=== PATIENT | female | born 1995 | race Hispanic/Latino ===

== ENCOUNTER 2018-03-30 07:27 | Emergency (ER) | payer OTHER, SELFPAY ==
[2018-03-30 08:05] LABS: #Lymphocytes 1.4 thou/uL (1.20-3.40); #Monocytes 0.3 thou/uL (0.11-0.59); #Neutrophils 5.1 thou/uL (1.40-6.50); %Basophils 0.4 % (0.0-1.0); %Eosinophils 0.7 % (0.0-10.0); %Lymphocytes 20.9 % (21.0-51.0); %Monocytes 4.2 % (0.0-10.0); %Neutrophils 73.9 % (42.0-75.0); Hemoglobin 14.6 g/dL (12.0-16.0); Mean Corpuscular HGB CONC 34.9 g/dL (32.0-36.0); Mean Corpuscular Hemoglobin 30.3 pg (27.0-31.0); Mean Corpuscular Volume 86.8 fl (81.0-99.0); Mean Platelet Volume 6.6 fL (7.4-10.4); Platelet Count 383 thou/uL (130-400); RBC Distribution Width 11.4 % (11.5-14.5); Red Blood Cell (RBC) Count 4.81 mill/uL (4.20-5.40); White Blood Cell (WBC) Count 6.9 thou/uL (4.8-10.8)
[2018-03-30] MEDS ORDERED: Ondansetron ODT 4 MG TAB ONE ×2 (08:09→09:27)
[2018-03-30 08:30] LABS: ALT (SGPT) 16 U/L (8-55); AST (SGOT) 19 U/L (5-34); Albumin 4.6 g/dL (3.5-5.0); Alkaline Phosphatase 93 U/L (40-150); Anion Gap 14 mmol/L (10-20); BUN (Urea Nitrogen) 5 mg/dL (7.0-18.7); Bilirubin, Total 0.3 mg/dL (0.2-1.2); Calc. Creatinine Clearance 0 mL/min (70-130); Carbon Dioxide 22 mmol/L (22-29); Chloride 107 mmol/L (98-107); Estimated GFR-MDRD Greater than 90; Globulin 3.6 g/dL (2.4-3.5); Glucose 125 mg/dL (70-105); Potassium 3.5 mmol/L (3.5-5.1); Protein, Total 8.2 g/dL (6.0-8.3); Sodium 139 mmol/L (136-145)
[2018-03-30 09:13] LABS: Bilirubin Negative (Negative); Blood, Urine Negative (Negative); Clarity CLEAR (Clear); Glucose, Urine (Dipstick) Negative (Negative); Leukocyte Negative (Negative); Nitrite Negative (Negative); Protein, Urine (Dipstick) Negative (Neg-Trace); Specific Gravity, Urine 1.012 (1.002-1.036); Urobilinogen 0.2 mg/dL (0.2-1.0)
== END 2018-03-30 10:57 | disposition home or self-care (01) ==
LOC: ERS 07:27
DX: E86.0 Dehydration (principal)
CPT/HCPCS: 36415; 80053; 81003; 85025; 96360; Q0162

== ENCOUNTER 2020-12-02 22:12 | Emergency (ER) | payer SELFPAY ==
[2020-12-02] MEDS ORDERED: Ondansetron PF 4 MG/2 ML Vial ONE (22:50)
[2020-12-02 23:05] LABS: #Lymphocytes 1.5 thou/uL (1.20-3.40); #Monocytes 0.3 thou/uL (0.11-0.59); #Neutrophils 7.9 thou/uL (1.40-6.50); %Basophils 0.2 % (0.0-1.0); %Eosinophils 0.1 % (0.0-10.0); %Monocytes 2.6 % (0.0-10.0); %Neutrophils 82.2 % (42.0-75.0); Hemoglobin 13.6 g/dL (12.0-16.0); Mean Corpuscular HGB CONC 34.9 g/dL (32.0-36.0); Mean Corpuscular Hemoglobin 29.7 pg (27.0-31.0); Mean Corpuscular Volume 85.1 fL (78.0-98.0); Mean Platelet Volume 6.8 fL (7.4-10.4); Platelet Count 408 thou/uL (130-400); RBC Distribution Width 11.5 % (11.5-14.5); Red Blood Cell (RBC) Count 4.58 mill/uL (4.20-5.40); White Blood Cell (WBC) Count 9.6 thou/uL (4.8-10.8)
[2020-12-02 23:23] LABS: ALT (SGPT) 23 U/L (8-55); AST (SGOT) 22 U/L (5-34); Albumin 4.3 g/dL (3.5-5.0); Alkaline Phosphatase 75 U/L (40-110); Anion Gap 15 mmol/L (10-20); BUN (Urea Nitrogen) 5 mg/dL (7.0-18.7); Bilirubin, Total 0.3 mg/dL (0.2-1.2); Calc. Creatinine Clearance 0 mL/min (70-130); Calcium 9.7 mg/dL (7.8-10.44); Carbon Dioxide 22 mmol/L (22-29); Chloride 105 mmol/L (98-107); Globulin 3.9 g/dL (2.4-3.5); Glucose 94 mg/dL (70-105); Potassium 3.7 mmol/L (3.5-5.1); Protein, Total 8.2 g/dL (6.0-8.3); Sodium 138 mmol/L (136-145)
== END 2020-12-03 00:54 | disposition home or self-care (01) ==
LOC: ERS 22:12
DX: O21.0 Mild hyperemesis gravidarum (principal); Z3A.09 9 weeks gestation of pregnancy
CPT/HCPCS: 80053; 85025; 96374; J2405

== ENCOUNTER 2020-12-13 13:29 | Emergency (ER) | payer MEDICAID, SELFPAY ==
[2020-12-13 14:14] LABS: Bacteria/HPF 2+ HPF (None Seen); Bilirubin Negative (Negative); Blood, Urine 3+ (Negative); Clarity Turbid (Clear); Glucose, Urine (Dipstick) Normal (Negative); Ketone, Urine 150 mg/dL (Negative); Leukocyte 250 Leu/uL (Negative); Nitrite Negative (Negative); Protein, Urine (Dipstick) 70 mg/dL (Neg-Trace); RBC/HPF 21-50 HPF (0-3); Specific Gravity, Urine 1.028 (1.002-1.036); Squamous Epithelial 21-50 HPF (0-3); WBC/HPF 21-50 HPF (0-3)
[2020-12-13] MEDS ORDERED: Acetaminophen 500 MG TAB ONE (14:52)
[2020-12-17 21:58] LABS: Chlamydia by PCR Not Detected (NotDetected); GC by PCR Not Detected (NotDetected)
== END 2020-12-13 16:20 | disposition home or self-care (01) ==
LOC: ERS 13:29
DX: O23.591 Infection of other part of genital tract in pregnancy, first trimester (principal); Z3A.10 10 weeks gestation of pregnancy; Z79.899 Other long term (current) drug therapy
CPT/HCPCS: 81003; 81015; 87480; 87491; 87510; 87591; 87660; 99283

== ENCOUNTER 2020-12-16 13:55 | Emergency (ER) | payer SELFPAY ==
[2020-12-16 14:59] LABS: Bacteria/HPF 3+ HPF (None Seen); Bilirubin Negative (Negative); Blood, Urine 2+ (Negative); Clarity Turbid (Clear); Glucose, Urine (Dipstick) Normal (Negative); Ketone, Urine Greater than 150 mg/dL (Negative); Leukocyte 250 Leu/uL (Negative); Nitrite Negative (Negative); Protein, Urine (Dipstick) 100 mg/dL (Neg-Trace); RBC/HPF 0-3 HPF (0-3); Squamous Epithelial 21-50 HPF (0-3); pH, Urine 5.5 (5.0-9.0)
[2020-12-16 15:00] LABS: Pregnancy Test - Urine (BHCG) POSITIVE (Negative); Pregu Control Background? CLEAR/WHITE (CLR/WHITE); Pregu Control Bar Appear? YES (CONTROL BAR)
[2020-12-16 15:29] LABS: #Lymphocytes 2.2 thou/uL (1.20-3.40); #Monocytes 0.5 thou/uL (0.11-0.59); #Neutrophils 7.3 thou/uL (1.40-6.50); %Basophils 0.4 % (0.0-1.0); %Eosinophils 0.1 % (0.0-10.0); %Lymphocytes 21.8 % (21.0-51.0); %Monocytes 5.2 % (0.0-10.0); %Neutrophils 72.4 % (42.0-75.0); Hemoglobin 13.4 g/dL (12.0-16.0); Mean Corpuscular HGB CONC 35.3 g/dL (32.0-36.0); Mean Corpuscular Volume 84.9 fL (78.0-98.0); Mean Platelet Volume 7.1 fL (7.4-10.4); Platelet Count 416 thou/uL (130-400); RBC Distribution Width 11.6 % (11.5-14.5); Red Blood Cell (RBC) Count 4.46 mill/uL (4.20-5.40); White Blood Cell (WBC) Count 10.1 thou/uL (4.8-10.8)
[2020-12-16 15:51] LABS: ALT (SGPT) 21 U/L (8-55); AST (SGOT) 22 U/L (5-34); Albumin 4.4 g/dL (3.5-5.0); Alkaline Phosphatase 71 U/L (40-110); Anion Gap 20 mmol/L (10-20); BUN (Urea Nitrogen) 8 mg/dL (7.0-18.7); Bilirubin, Total 0.3 mg/dL (0.2-1.2); Calc. Creatinine Clearance 0 mL/min (70-130); Calcium 9.7 mg/dL (7.8-10.44); Carbon Dioxide 16 mmol/L (22-29); Chloride 106 mmol/L (98-107); Glucose 79 mg/dL (70-105); Potassium 3.6 mmol/L (3.5-5.1); Protein, Total 8.4 g/dL (6.0-8.3); Sodium 138 mmol/L (136-145)
[2020-12-16] MEDS ORDERED: Ondansetron ODT 4 MG TAB ONE (19:05)
[2020-12-16] MEDS ORDERED: cefTRIAXone\\ROCEPHIN 2 GM VIAL ONE (20:47)
[2020-12-16] MEDS ORDERED: Metoclopramide HCl 10 MG/2 ML VIAL ONE (20:57)
== END 2020-12-16 22:46 | disposition home or self-care (01) ==
LOC: ERS 13:55
DX: O23.41 Unspecified infection of urinary tract in pregnancy, first trimester (principal); O99.891 Other specified diseases and conditions complicating pregnancy; R11.2 Nausea with vomiting, unspecified; Z3A.11 11 weeks gestation of pregnancy
CPT/HCPCS: 36415; 36416; 80053; 81003; 81015; 81025; 84702; 85025; 96365; 96368; J0696; J2765; Q0162

== ENCOUNTER 2020-12-17 23:23 | Observation (INO) | payer MEDICAID, SELFPAY ==
[2020-12-17] MEDS ORDERED: Ondansetron PF 4 MG/2 ML Vial ONE (23:53)
[2020-12-18 00:03] LABS: #Monocytes 0.5 thou/uL (0.11-0.59); %Basophils 0.2 % (0.0-1.0); %Eosinophils 0.1 % (0.0-10.0); %Lymphocytes 11.8 % (21.0-51.0); %Neutrophils 84.9 % (42.0-75.0); Hemoglobin 13.6 g/dL (12.0-16.0); Mean Corpuscular HGB CONC 34.7 g/dL (32.0-36.0); Mean Corpuscular Hemoglobin 29.6 pg (27.0-31.0); Mean Corpuscular Volume 85.5 fL (78.0-98.0); Mean Platelet Volume 7.2 fL (7.4-10.4); Platelet Count 450 thou/uL (130-400); RBC Distribution Width 11.7 % (11.5-14.5); Red Blood Cell (RBC) Count 4.59 mill/uL (4.20-5.40); White Blood Cell (WBC) Count 16.5 thou/uL (4.8-10.8)
[2020-12-18 00:42] LABS: ALT (SGPT) 19 U/L (8-55); AST (SGOT) 20 U/L (5-34); Albumin 4.5 g/dL (3.5-5.0); Alkaline Phosphatase 78 U/L (40-110); Anion Gap 23 mmol/L (10-20); BUN (Urea Nitrogen) 6 mg/dL (7.0-18.7); Bilirubin, Total 0.6 mg/dL (0.2-1.2); Calc. Creatinine Clearance 0 mL/min (70-130); Chloride 111 mmol/L (98-107); Globulin 4.2 g/dL (2.4-3.5); Glucose 94 mg/dL (70-105); Potassium 3.4 mmol/L (3.5-5.1); Protein, Total 8.7 g/dL (6.0-8.3); Sodium 140 mmol/L (136-145)
[2020-12-18] MEDS ORDERED: Promethazine HCl 25 MG/ML VIAL ONE (00:42)
[2020-12-18 00:46] LABS: Carbon Dioxide 9 mmol/L (22-29)
[2020-12-18] MEDS ORDERED: cefTRIAXone\\ROCEPHIN 1 GM VIAL ONE (00:56)
[2020-12-18 01:42] LABS: Bacteria/HPF None Seen HPF (None Seen); Bilirubin Negative (Negative); Blood, Urine 2+ (Negative); Clarity Clear (Clear); Glucose, Urine (Dipstick) Normal (Negative); Ketone, Urine Greater than 150 mg/dL (Negative); Leukocyte Negative Leu/uL (Negative); Nitrite Negative (Negative); Protein, Urine (Dipstick) 70 mg/dL (Neg-Trace); RBC/HPF 21-50 HPF (0-3); Specific Gravity, Urine 1.027 (1.002-1.036); Squamous Epithelial 0-3 HPF (0-3)
[2020-12-18] MEDS ORDERED: Famotidine/PF 20 mg/2ml Vial ONE (01:48)
[2020-12-18] MEDS ORDERED: Ondansetron ODT 4 MG TAB PO PRN (01:50)
[2020-12-18] MEDS ORDERED: Acetaminophen 325 MG TAB PO PRN (01:50)
[2020-12-18] MEDS ORDERED: Ondansetron PF 4 MG/2 ML Vial IVP PRN (01:50)
[2020-12-18] MEDS ORDERED: Promethazine HCl 25 MG/ML VIAL IM PRN (01:54)
[2020-12-18] MEDS: Sodium Chloride 0.9% 1,000 ML IV SCH ×4 (03:26→20:18)
[2020-12-18] MEDS ORDERED: Polyethylene Glycol 3350 17 GM Packet PO PRN (07:02)
[2020-12-18 08:38] LABS: SARS-CoV-2 PCR by NAA Not Detected (NotDetected)
[2020-12-18] MEDS: Famotidine 20 MG TAB PO SCH ×2 (08:45→20:12)
[2020-12-18] MEDS: pyridOXINE 50 MG (B6) TAB PO SCH ×3 (08:45→20:12)
[2020-12-18] MEDS ORDERED: pyridOXINE 50 MG (B6) TAB PO SCH (09:00)
[2020-12-18] MEDS ORDERED: FLU VACC QS2020-21(6MOS UP)/PF 60 MCG/0.5 ML SYRINGE IM ONE (21:00)
[2020-12-18] MEDS ORDERED: Doxylamine 25 MG TAB PO SCH ×2 (21:00)
[2020-12-19] MEDS: pyridOXINE 50 MG (B6) TAB PO SCH ×2 (00:58→07:45)
[2020-12-19] MEDS ORDERED: cefTRIAXone\\ROCEPHIN 1 GM in Sodium Chloride 0.9% 100 ML IVPB SCH (01:00)
[2020-12-19] MEDS: Sodium Chloride 0.9% 1,000 ML IV SCH (01:03)
[2020-12-19 05:41] LABS: Mean Corpuscular HGB CONC 33.6 g/dL (32.0-36.0); Mean Corpuscular Hemoglobin 29.1 pg (27.0-31.0); Mean Corpuscular Volume 86.5 fL (78.0-98.0); Platelet Count 345 thou/uL (130-400); Red Blood Cell (RBC) Count 3.78 mill/uL (4.20-5.40); White Blood Cell (WBC) Count 11.1 thou/uL (4.8-10.8)
[2020-12-19] MEDS: Famotidine 20 MG TAB PO SCH (07:45)
[2020-12-19 08:08] VITALS: BP 114/59; TEMP 98.4
== END 2020-12-19 12:43 | disposition home or self-care (01) ==
LOC: ERS 23:23 → 3SE 12-18 01:50
PROVIDERS: ADMIT Obstetrics & Gynecology; ATTEND Obstetrics & Gynecology
DX: O21.9 Vomiting of pregnancy, unspecified (principal); O99.611 Diseases of the digestive system complicating pregnancy, first trimester; K59.00 Constipation, unspecified; Z3A.11 11 weeks gestation of pregnancy; Z79.2 Long term (current) use of antibiotics; Z20.822 Contact with and (suspected) exposure to COVID-19
CPT/HCPCS: 36415; 51701; 76856; 80053; 81003; 81015; 85025; 85027; 87086; 87635; 96361; 96365; 96367; 96375; 96376; G0378; J0696; J2405; J2550; J3490; S0028; U0003; U0005

== ENCOUNTER 2020-12-21 14:44 | Emergency (ER) | payer MEDICAID, SELFPAY | END 2020-12-21 17:38 | disposition home or self-care (01) | LOC: ERS 14:44 | DX: O20.0 Threatened abortion (principal); Z79.899 Other long term (current) drug therapy; Z3A.12 12 weeks gestation of pregnancy | CPT/HCPCS: 36415; 84702; 86900; 86901; 99284 ==

== ENCOUNTER 2020-12-26 23:42 | Emergency (ER) | payer MEDICAID, SELFPAY ==
[2020-12-27 00:23] LABS: #Lymphocytes 1.9 thou/uL (1.20-3.40); #Monocytes 0.5 thou/uL (0.11-0.59); #Neutrophils 7.6 thou/uL (1.40-6.50); %Basophils 0.1 % (0.0-1.0); %Eosinophils 0.1 % (0.0-10.0); %Lymphocytes 19.1 % (21.0-51.0); %Monocytes 5.2 % (0.0-10.0); %Neutrophils 75.6 % (42.0-75.0); Hemoglobin 13.4 g/dL (12.0-16.0); Mean Corpuscular Hemoglobin 29.5 pg (27.0-31.0); Mean Platelet Volume 7.8 fL (7.4-10.4); Platelet Count 393 thou/uL (130-400); RBC Distribution Width 11.8 % (11.5-14.5); Red Blood Cell (RBC) Count 4.55 mill/uL (4.20-5.40); White Blood Cell (WBC) Count 10.1 thou/uL (4.8-10.8)
[2020-12-27 00:45] LABS: ALT (SGPT) 45 U/L (8-55); AST (SGOT) 35 U/L (5-34); Albumin 4.2 g/dL (3.5-5.0); Alkaline Phosphatase 84 U/L (40-110); Anion Gap 21 mmol/L (10-20); BUN (Urea Nitrogen) 9 mg/dL (7.0-18.7); Bilirubin, Total 0.5 mg/dL (0.2-1.2); Calc. Creatinine Clearance 0 mL/min (70-130); Calcium 9.7 mg/dL (7.8-10.44); Carbon Dioxide 20 mmol/L (22-29); Chloride 100 mmol/L (98-107); Glucose 105 mg/dL (70-105); Protein, Total 8.2 g/dL (6.0-8.3); Sodium 138 mmol/L (136-145)
[2020-12-27 00:48] LABS: Potassium 2.8 mmol/L (3.5-5.1)
[2020-12-27] MEDS ORDERED: Ondansetron ODT 4 MG TAB ONE (00:54)
[2020-12-27] MEDS ORDERED: Acetaminophen 500 MG TAB ONE ×2 (00:54→01:24)
[2020-12-27] MEDS ORDERED: Ondansetron PF 4 MG/2 ML Vial ONE (01:07)
[2020-12-27 01:08] LABS: Anion Gap 19 mmol/L (10-20); BUN (Urea Nitrogen) 9 mg/dL (7.0-18.7); Calc. Creatinine Clearance 0 mL/min (70-130); Calcium 9.6 mg/dL (7.8-10.44); Carbon Dioxide 22 mmol/L (22-29); Chloride 101 mmol/L (98-107); Glucose 98 mg/dL (70-105); Sodium 139 mmol/L (136-145)
[2020-12-27 01:13] LABS: Potassium 2.8 mmol/L (3.5-5.1)
[2020-12-27] MEDS ORDERED: Potassium Chloride 20 MEQ TAB ONE (01:24)
[2020-12-27] MEDS ORDERED: Promethazine HCl 25 MG SUPP ONE (01:38)
== END 2020-12-27 02:20 | disposition home or self-care (01) ==
LOC: ERS 23:42
DX: O21.0 Mild hyperemesis gravidarum (principal); Z3A.12 12 weeks gestation of pregnancy
CPT/HCPCS: 36415; 80048; 80053; 84702; 85025; 96374; J2405; Q0162

== ENCOUNTER 2020-12-29 03:20 | Observation (INO) | payer MEDICAID, SELFPAY ==
[2020-12-29] MEDS ORDERED: Promethazine HCl 25 MG/ML VIAL ONE ×3 (03:41→13:30)
[2020-12-29 03:59] LABS: #Lymphocytes 2.3 thou/uL (1.20-3.40); #Monocytes 0.8 thou/uL (0.11-0.59); #Neutrophils 11.2 thou/uL (1.40-6.50); %Basophils 0.1 % (0.0-1.0); %Lymphocytes 16.4 % (21.0-51.0); %Monocytes 5.6 % (0.0-10.0); Hemoglobin 14.1 g/dL (12.0-16.0); Mean Corpuscular HGB CONC 34.8 g/dL (32.0-36.0); Mean Corpuscular Hemoglobin 29.1 pg (27.0-31.0); Mean Corpuscular Volume 83.5 fL (78.0-98.0); Mean Platelet Volume 7.7 fL (7.4-10.4); Platelet Count 417 thou/uL (130-400); Red Blood Cell (RBC) Count 4.85 mill/uL (4.20-5.40); White Blood Cell (WBC) Count 14.3 thou/uL (4.8-10.8)
[2020-12-29 04:27] LABS: ALT (SGPT) 85 U/L (8-55); AST (SGOT) 58 U/L (5-34); Albumin 4.5 g/dL (3.5-5.0); Alkaline Phosphatase 96 U/L (40-110); Anion Gap 27 mmol/L (10-20); BUN (Urea Nitrogen) 14 mg/dL (7.0-18.7); Calc. Creatinine Clearance 0 mL/min (70-130); Calcium 10.2 mg/dL (7.8-10.44); Carbon Dioxide 14 mmol/L (22-29); Chloride 102 mmol/L (98-107); Globulin 4.3 g/dL (2.4-3.5); Glucose 126 mg/dL (70-105); Protein, Total 8.8 g/dL (6.0-8.3); Sodium 140 mmol/L (136-145)
[2020-12-29 04:30] LABS: Potassium 2.8 mmol/L (3.5-5.1)
[2020-12-29] MEDS ORDERED: Promethazine HCl 25 MG in Sodium Chloride 0.9% 50 ML IVPB PRN (06:46)
[2020-12-29] MEDS ORDERED: Morphine 4 MG/ML VIAL SLOW IVP PRN ×2 (06:48→14:17)
[2020-12-29] MEDS: Sodium Chloride 0.9% 1,000 ML IV SCH ×2 (06:57→13:52)
[2020-12-29] MEDS: Potassium Chloride 10 MEQ in Premix Bag 1 BAG IVPB SCH ×2 (06:58→06:59)
[2020-12-29] MEDS: Piperacillin/Tazobactam 4.5 GM in Sodium Chloride 0.9% 100 ML IVPB SCH ×2 (06:59→13:52)
[2020-12-29 09:09] LABS: Anion Gap 19 mmol/L (10-20); BUN (Urea Nitrogen) 11 mg/dL (7.0-18.7); Calc. Creatinine Clearance 141 mL/min (70-130); Calcium 8.6 mg/dL (7.8-10.44); Carbon Dioxide 17 mmol/L (22-29); Chloride 107 mmol/L (98-107); Glucose 93 mg/dL (70-105); Potassium 2.9 mmol/L (3.5-5.1); Sodium 140 mmol/L (136-145)
--- NOTE | 2020-12-29 09:33 | ULT ---
PRELIMINARY REPORT/[facility]/EMERGENCY AFTER HOURS PROCEDURE: EXAM: US Abdomen Limited, Right Upper Quadrant. CLINICAL HISTORY: HX: ABD PAIN, N/V, ELEVATED LFTS. SEE NOTES ON LAST IMAGE. THANKS TECHNIQUE: Real-time ultrasound of the right upper quadrant with image documentation. COMPARISON: None provided. FINDINGS: LIVER: Unremarkable. GALLBLADDER: The gallbladder is distended and filled with echogenic sludge, with mild wall thickening and a positi ve sonographic Gilliland's sign. Findings highly suggestive of acute cholecystitis. COMMON BILE DUCT: No dilation. PANCREAS: Unremarkable as visualized. The distal pancreas is obscured by overlying bowel gas. RIGHT KIDNEY: Unremarkable. No hydronephrosis. IMPRESSION: The gallbladder is distended and filled with echogenic sludge, with mild wall thickening and a positi ve sonographic Gilliland's sign. Findings highly suggestive of acute cholecystitis. ELECTRONICALLY SIGNED BY: Etta Lam MD Dec 29, 2020 4:55:27 AM ARTIFICIAL TEETH INSPECTOR This report is intended for review by the ordering physician only, in accordance of law. If you recei ve this report in error, please call [facility] at [phone]. FINAL REPORT EMERGENCY AFTER HOURS RIGHT UPPER QUADRANT ULTRASOUND: I agree with the preliminary report provided by [facility]. Findings are suspicious for acute c alculus cholecystitis. Gallbladder is distended with gallbladder sludge and small stones. There is re port of a positive sonographic Gilliland's sign. There is gallbladder wall thickening. Common bile duct measured 2.4 mm. Visualized liver, pancreas, and right kidney are within normal limits. POS:
--- NOTE | 2020-12-29 09:47 | PDOC.H&P ---
- History & Physical Encounter Time: 12/29/20 Encounter Time: 09:42 Chief complaint-my abdomen hurts History of present illness-the patient is a 25-year-old G1, P0 female who is 13 weeks . She presented to the emergency room several days ago with nausea and vomiting. She was given Phenergan. Over the last 3 to 4 days, she states that she has been developing epigastric pain. It seems to be nonradiating. Constant. She has had a decreased p.o. intake. At times, feels like the room is spinning. She has never had anything like this before. Pain can be 10 out of 10. Past medical history-none Past surgical history-none Allergies-none Medications-none Social history-no MALIKA Family history-diabetes hypertension Review of systems-negative for 10 system, two-point per system other than HPI Heart rate 80, afebrile, 123/72 General-appears ill, uncomfortable Head-[normocephalic, atraumatic] HEENT- [EOMI], [PERRLA] Neck-[trachea midline, supple] Lungs-[grossly clear to auscultation], [normal air movement] Heart-[regular regular], [no murmurs] Abdomen-[soft], [nondistended], tender to palpation in the right upper quadrant, [normal active bowel sounds] Musculosketal-[full range of motion], [no gross deformity] Psychiatric-[good insight, good judgment] Skin-[good turgor, no jaundice] Neuro- [GCS 15], [CN II-XII intact] White blood cell count 14, transaminases slightly elevated Right upper quadrant ultrasound-independently viewed the images, I read the radiologist interpretation-patient's gallbladder is basically filled with echogenic material. Gallbladder wall slightly thickened. Common bile duct is normal. Assessment- #1-acute cholecystitis-patient has a physical exam, radiology findings, and labs consistent with acute cholecystitis. We have discussed the risks and benefits of proceeding to the operating room for laparoscopic cholecystectomy. Risks include, but not limited to, bleeding, infection, damage to bowel, bile ducts, liver. We also had a discussion that her is in the previable stage. There is always a risk for miscarriage. Unfortunately there is not much that we can do if that were to happen. Her PHYTOCHEMISTRY PROFESSOR is in [place]. She is visiting her parents here. Patient voices understanding. #3-gicxuymkgug-kfouj replaced-more than likely secondary to vomiting #6-yigvtamq-gjf above Plan- N.p.o. Antibiotics Laparoscopic cholecystectomy Possible discharge home today, but the patient would have to rebound fairly quickly. More than likely, discharge home tomorrow
[2020-12-29] MEDS ORDERED: PROPOFOL 200 MG/20 ML VIAL ONE (10:50)
[2020-12-29] MEDS ORDERED: Lidocaine 1% PF 5 ML VIAL ONE (10:50)
[2020-12-29] MEDS ORDERED: Succinylcholine 200 MG/10 ml SYRINGE FS ONE (10:50)
[2020-12-29] MEDS ORDERED: Ondansetron PF 4 MG/2 ML Vial ONE (10:50)
[2020-12-29] MEDS ORDERED: Ketorolac Tromethamine 30 MG/ML VIAL ONE (10:50)
[2020-12-29] MEDS ORDERED: Dexamethasone 20 MG/5 ML VIAL ONE (10:50)
[2020-12-29] MEDS ORDERED: Glycopyrrolate 0.2 MG/ML 5 ML SYRINGE ONE (10:50)
[2020-12-29] MEDS ORDERED: Rocuronium Bromide 10 MG/ML (10ML VIAL) ONE (10:50)
[2020-12-29 11:17] LABS: SARS-CoV-2 NAA Rapid Test Not Detected (NotDetected)
[2020-12-29] MEDS ORDERED: Fentanyl 100 MCG/2 ML VIAL ONE (11:46)
[2020-12-29] MEDS ORDERED: XYLOCAINE 2%-EPI 1:100,000 20 ML VIAL ONE (12:37)
[2020-12-29] MEDS ORDERED: Bupivacaine PF 0.5% 30 ML VIAL ONE (12:37)
[2020-12-29] MEDS ORDERED: HYDROmorphone 0.5 MG/0.5 ML SYRINGE ONE (13:30)
[2020-12-29] MEDS ORDERED: HYDROcodone/Acetaminophen 10/325 mg Tablet PO PRN (14:17)
[2020-12-29] MEDS ORDERED: Calcium Carbonate 500 MG ChewTAB PO PRN (14:17)
[2020-12-29] MEDS ORDERED: Mag-Al 1200 mg/1200 mg/30 ML UDCUP PO PRN (14:17)
[2020-12-29] MEDS ORDERED: hydrALAZINE 20 MG/ML VIAL SLOW IVP PRN (14:17)
[2020-12-29] MEDS ORDERED: Dextrose 5% in Water 1,000 ML IV PRN (14:17)
[2020-12-29] MEDS ORDERED: Promethazine HCl 25 MG/ML VIAL IM PRN (14:17)
[2020-12-29] MEDS ORDERED: Ondansetron PF 4 MG/2 ML Vial IVP PRN (14:17)
[2020-12-29] MEDS ORDERED: Morphine 2 MG/ML VIAL SLOW IVP PRN (14:17)
[2020-12-29] MEDS ORDERED: Dextrose 50% Abboject 50 ML SYRINGE SLOW IVP PRN (14:17)
--- NOTE | 2020-12-29 14:21 | PDOC.OP ---
Operative Note - Operative Note Operative Note: Date of operation-29 December 2020 Preoperative diagnosis-acute cholecystitis Postoperative diagnosis-same Operation-[laparoscopic cholecystectomy] Specimen-[gallbladder] EBL-[minimal] Complications-[none] Sponge and needle count were correct x2 Indication for procedure-the patient is a 25-year-old female who presents for laparoscopic cholecystectomy secondary to gallstones and acute cholecystitis.. Conduct of the operation-after written preoperative informed consent, the patient was taken to the operating room, placed in the supine position and intubated. The abdomen was prepared and draped in sterile fashion. A timeout was performed. An incision was made in the right subcostal margin and a 5 mm trocar direct optical entry technique was used to enter the abdomen. Pneumoperitoneum was established. The underlying viscera was inspected and there was no damage noted. A 10 mm was placed at the umbilicus and 2 additional 5 mm were placed under the right costal margins at the usual locations under direct visualization. The fundus of the gallbladder was grasped and retracted over the dome of the liver. The gallbladder appeared fairly thin-walled. There was some chronic changes in the color, but given the patient's time course, I was expecting more of an inflammatory reaction.. The infundibulum was grasped and retracted laterally. Dissection was carried out in the triangle of Calot until the critical view of safety was obtained. Clips were placed across the cystic duct and it was divided with the harmonic. The artery was divided with the harmonic and the gallbladder was removed from the gallbladder bed fossa. Specimen was placed in an Endo Catch bag and removed via the umbilicus. The right upper quadrant was inspected and there was no bleeding or bile staining noted. The trocar was removed at the umbilicus and a 0 Vicryl suture on a suture passer was used to close the fascial defect. The incisions were irrigated and closed with Monocryl and surgical skin glue. The patient was extubated and taken the postanesthesia care area in good condition having tolerated the procedure well.
[2020-12-29] MEDS: Lactated Ringer's 1,000 ML IV SCH ×2 (15:06→23:02)
[2020-12-29] MEDS: Ketorolac Tromethamine 30 MG/ML VIAL IVP SCH ×2 (18:02→23:00)
[2020-12-29] MEDS: Famotidine/PF 20 mg/2ml Vial SLOW IVP SCH (20:18)
[2020-12-29] MEDS: Famotidine 20 MG TAB PO SCH (20:19)
[2020-12-30] MEDS: Ketorolac Tromethamine 30 MG/ML VIAL IVP SCH ×2 (05:43→11:31)
[2020-12-30 06:56] LABS: #Lymphocytes 2.3 thou/uL (1.20-3.40); #Monocytes 0.8 thou/uL (0.11-0.59); %Basophils 0.1 % (0.0-1.0); %Lymphocytes 17.3 % (21.0-51.0); %Monocytes 5.9 % (0.0-10.0); %Neutrophils 76.7 % (42.0-75.0); Hemoglobin 10.1 g/dL (12.0-16.0); Mean Corpuscular HGB CONC 34.9 g/dL (32.0-36.0); Mean Corpuscular Hemoglobin 29.7 pg (27.0-31.0); Mean Corpuscular Volume 85.2 fL (78.0-98.0); Platelet Count 290 thou/uL (130-400); RBC Distribution Width 12.3 % (11.5-14.5); Red Blood Cell (RBC) Count 3.42 mill/uL (4.20-5.40)
[2020-12-30 07:11] LABS: Anion Gap 15 mmol/L (10-20); BUN (Urea Nitrogen) 7 mg/dL (7.0-18.7); Calc. Creatinine Clearance 149 mL/min (70-130); Calcium 8.3 mg/dL (7.8-10.44); Carbon Dioxide 18 mmol/L (22-29); Chloride 107 mmol/L (98-107); Glucose 84 mg/dL (70-105); Sodium 137 mmol/L (136-145)
[2020-12-30 07:13] LABS: Potassium 2.6 mmol/L (3.5-5.1)
[2020-12-30] MEDS: Famotidine 20 MG TAB PO SCH (08:15)
[2020-12-30] MEDS: Famotidine/PF 20 mg/2ml Vial SLOW IVP SCH (08:15)
[2020-12-30] MEDS: Lactated Ringer's 1,000 ML IV SCH (08:15)
[2020-12-30] MEDS ORDERED: Potassium Chloride 10 MEQ in Premix Bag 1 BAG IVPB SCH (08:30)
--- NOTE | 2020-12-30 08:31 | PDOC.BPN ---
- Brief Progress Note Encounter Date: 12/30/20 Encounter Time: 08:29 Patient states she is doing much better this morning. She is tolerating liquids. She had been unable to tolerate liquids for several days. Pain seems to be well controlled. She has not gotten out of bed yet. Vital signs-afebrile normal heart rate abdomen-soft, appropriately tender, incisions are clean dry and intact Potassium-low Assessment-status post laparoscopic cholecystectomy. Surgically, she seems to be doing well. She is tolerating some liquids. I agree with the nurses that she needs a little encouragement to understand she is capable of getting out of bed and ambulating. Outside of that, we will advance her diet. Replace her potassium IV. I will also put in some potassium replacement pills at her pharmacy. She understands she needs to follow-up with her minilab operator for continuing monitoring of her potassium levels.
--- NOTE | 2020-12-30 08:33 | PDOC.DS.DS ---
Provider Date of Admission: 12/29/20 06:31 Date of Discharge: 12/30/20 Admitting Provider: Thaddeus Roth MD Consultations: General Surgery Primary Care Physician: NO PCP PROVIDER Course Hospital Course: Patient was admitted to the hospital through the ER. She underwent a laparoscopic cholecystectomy. Her potassium was a little low and this was replaced. She was discharged home. Procedures: Laparoscopic cholecystectomy Lab Results: 12/30/20 06:02 12/30/20 06:02 Abnormal Lab Results - Last 48 hrs 12/29/20 03:50: Potassium 2.8 L*, Carbon Dioxide 14 L, Anion Gap 27 H, AST 58 H, ALT 85 H, Serum Total Protein 8.8 H, Globulin 4.3 H, Albumin/Globulin Ratio 1.0 L 12/29/20 03:50: WBC 14.3 H, Plt Count 417 H, Neutrophils % 78.0 H, Lymphocytes % 16.4 L, Neutrophils # 11.2 H, Monocytes # 0.8 H 12/29/20 03:50: B-Hydroxybutyrate 4.64 H 12/29/20 08:36: Potassium 2.9 L*, Carbon Dioxide 17 L 12/30/20 06:02: WBC 13.0 H, RBC 3.42 L, Hgb 10.1 L, Hct 29.1 L, Neutrophils % 76.7 H, Lymphocytes % 17.3 L, Neutrophils # 10.0 H, Monocytes # 0.8 H 12/30/20 06:02: Potassium 2.6 L*, Carbon Dioxide 18 L Vitals: Vital Signs (12 hours) Temp Pulse Resp BP Pulse Ox 12/30/20 08:00 98.4 F 83 14 116/70 97 12/30/20 03:30 98.2 F 84 16 106/64 96 12/29/20 23:23 98.1 F 81 16 104/66 97 Weight Weight 154 lb Physical Exam: The patient was seen and examined on the day of discharge. Problem Assessment: Patient had signs and symptoms consistent with acute cholecystitis. She underwent laparoscopic cholecystectomy. She also had hypokalemia. This was replaced. She'll be going home on potassium supplement. Plan Prescriptions: HYDROcodone Bit/APAP 5/325 [[place] 5/325] 1 tab PO Q4HR PRN #20 tab PRN Reason: Pain Potassium Chloride [K-Dur] 20 meq PO DAILY #30 tab Home Medications: Medication Instructions Recorded Confirmed Type HYDROcodone Bit/APAP 5/325 [[place] 1 tab PO Q4HR PRN #20 tab 12/29/20 Rx 5/325] Potassium Chloride [K-Dur] 20 meq PO DAILY #30 tab 12/30/20 Rx Allergies: No Known Drug Allergies Allergy (Verified 12/29/20 06:36) Discharge Instructions:: Surgery is a stress on your body. Do not expect everything to return to "normal" as soon as your operation is over. It can take several weeks for your body to return to a sense of normalcy. Diet: It is not unusual to have a decreased appetite for several days or weeks after surgery. Initially, this is usually a side effect of the medication that was used during your procedure to keep you comfortable. Unless I tell you differently, you may consume what ever you feel like, when you feel up to it. Activity: If you have incisions on your abdomen, in general, do not lift anything over 25 pounds for the next 2 or 3 weeks. This is a general guideline and not an absolute. Please use commonsense. You may, however, do all the walking you want, to include stairs, if able. Driving is an individual issue. Some patients recover faster than others. My criteria for driving is that you are off your narcotic pain medicine and you are ambulating without difficulty. Many people find themselves needing to take a nap in the early recovery. Even very energetic people will feel rundown, typically in the afternoons. This is normal. Listen to your body. Bowel movements: Constipation related issues are the most common postoperative questions I receive. Do not expect to be back on a normal schedule for almost a week. The medication used to keep you comfortable during surgery slows down your colon. If you are feeling uncomfortable, you may go to a local pharmacy and purchase [id number] laxatives as you see fit. A diet with plenty of fiber and water will help get you back to normal. Incisions: If you have surgical skin glue over your incision(s), you may shower as soon as you like. Do not let the water beat down on the incisions or scrub the area. Let soap and water flow over the incision(s). Do not soak underwater for at least 10 days. The glue will fall off when it is ready, typically in 2 to 3 weeks. You do not need to place Neosporin or other "antibacterial" ointments/solutions on the area. A little redness right around the incision is normal, but redness that starts to spread away from the incision area (typically 3-5 days after surgery) combined with puffiness and increased tenderness should prompt you to return to the office. Pain control: I typically send patients home with a prescription. The idea is to make your pain manageable. It is impossible to "take all the pain away." After a few days, you should start transitioning from your narcotic pain medicine to Motrin or Tylenol. If you have any questions, please feel free to call the office at [phone]. Ask for my nurse, Maeve. If you do not already have an appointment, please call and ask for a follow-up in [approximately 2 weeks]. Alternatively, if you would back in [place], you can follow-up with your OB. The follow-up visit with me is intended to take a look at your incisions and make sure you are doing okay overall. Unless you have questions, please do not feel compelled to drive all the way back down from [place] for a follow-up appointment with me. Activity:: Activity as Tolerated Nourishment:: Regular Diet Referrals: PROVIDER,NO PCP [Primary Care Provider] - Disposition: HOME Quality CORE MEASURES:: N/A
[2020-12-30] MEDS ORDERED: FLU VACC QS2020-21(6MOS UP)/PF 60 MCG/0.5 ML SYRINGE IM ONE (09:00)
[2020-12-30 12:02] VITALS: BP 105/65; TEMP 98.2
== END 2020-12-30 16:00 | disposition home or self-care (01) ==
LOC: ERS 03:20 → SURG A 06:31
PROVIDERS: ADMIT Surgery; ATTEND Surgery
PROC: 0FT44ZZ Resection of Gallbladder, Percutaneous Endoscopic Approach (ICD-10-PCS; principal; 2020-12-29)
DX: O99.611 Diseases of the digestive system complicating pregnancy, first trimester (principal); K80.12 Calculus of gallbladder with acute and chronic cholecystitis without obstruction; O99.281 Endocrine, nutritional and metabolic diseases complicating pregnancy, first trimester; E87.6 Hypokalemia; Z3A.13 13 weeks gestation of pregnancy; Z20.822 Contact with and (suspected) exposure to COVID-19
CPT/HCPCS: 36415; 76705; 80048; 80053; 82010; 85025; 88304; 96365; 96375; 96376; G0378; J1100; J1170; J1885; J2270; J2405; J2543; J2550; J2704; J3010; J3480; J3490; S0020; S0028; U0002

== ENCOUNTER 2020-12-31 22:51 | Emergency (ER) | payer MEDICAID, SELFPAY ==
[2020-12-31] MEDS ORDERED: Morphine 4 MG/ML VIAL ONE (23:56)
[2020-12-31] MEDS ORDERED: Promethazine HCl 25 MG/ML VIAL ONE (23:56)
[2020-12-31 23:57] LABS: #Lymphocytes 1.5 thou/uL (1.20-3.40); #Monocytes 0.5 thou/uL (0.11-0.59); #Neutrophils 7.2 thou/uL (1.40-6.50); %Basophils 0.1 % (0.0-1.0); %Eosinophils 0.3 % (0.0-10.0); %Lymphocytes 16.3 % (21.0-51.0); %Monocytes 4.9 % (0.0-10.0); %Neutrophils 78.4 % (42.0-75.0); Hemoglobin 12.4 g/dL (12.0-16.0); Mean Corpuscular HGB CONC 35.1 g/dL (32.0-36.0); Mean Corpuscular Hemoglobin 29.6 pg (27.0-31.0); Mean Corpuscular Volume 84.5 fL (78.0-98.0); Mean Platelet Volume 7.6 fL (7.4-10.4); Platelet Count 320 thou/uL (130-400); RBC Distribution Width 12.1 % (11.5-14.5); White Blood Cell (WBC) Count 9.2 thou/uL (4.8-10.8)
[2021-01-01 00:17] LABS: ALT (SGPT) 167 U/L (8-55); AST (SGOT) 126 U/L (5-34); Albumin 3.8 g/dL (3.5-5.0); Alkaline Phosphatase 98 U/L (40-110); Anion Gap 19 mmol/L (10-20); BUN (Urea Nitrogen) 6 mg/dL (7.0-18.7); Bilirubin, Total 0.9 mg/dL (0.2-1.2); Calc. Creatinine Clearance 0 mL/min (70-130); Calcium 9.1 mg/dL (7.8-10.44); Carbon Dioxide 25 mmol/L (22-29); Chloride 99 mmol/L (98-107); Globulin 3.6 g/dL (2.4-3.5); Glucose 74 mg/dL (70-105); Protein, Total 7.4 g/dL (6.0-8.3); Sodium 140 mmol/L (136-145)
[2021-01-01 00:20] LABS: Potassium 2.6 mmol/L (3.5-5.1)
[2021-01-01 01:28] LABS: Bilirubin Negative (Negative); Blood, Urine Trace (Negative); Clarity Turbid (Clear); Glucose, Urine (Dipstick) Normal (Negative); Ketone, Urine Greater than 150 mg/dL (Negative); Leukocyte Negative Leu/uL (Negative); Mucous/LPF Rare LPF (<2+); Nitrite Negative (Negative); Protein, Urine (Dipstick) 30 mg/dL (Neg-Trace); Specific Gravity, Urine 1.018 (1.002-1.036); Urobilinogen 3 mg/dL (Less than 2); pH, Urine 6.5 (5.0-9.0)
[2021-01-01 01:32] LABS: Bacteria/HPF 1+ HPF (None Seen)
[2021-01-01] MEDS ORDERED: Potassium Chloride 10 MEQ in Premix Bag 1 BAG IVPB SCH (02:00)
--- NOTE | 2021-01-01 09:12 | ULT ---
PRELIMINARY REPORT/[facility]/EMERGENCY AFTER HOURS PROCEDURE: EXAM: US Abdomen complete CLINICAL HISTORY: Post cholecystectomy, surgery Wednesday12/29/2020, LUQ to RUQ pain today, N/V, fever TECHNIQUE: Real-time ultrasound of the abdomen (complete) with image documentation. COMPARISON: US - US GALLBLADDER RUQ - 12/29/2020 04:13 AM WOOD TREATING INSPECTOR FINDINGS: LIVER: Measures 15 cm and demonstrates fatty infiltration GALLBLADDER: Surgically absent COMMON BILE DUCT: No dilation. Measures 4.5 mm PANCREAS: Unremarkable where visualized. The distal pancreas is obscured by overlying bowel gas. KIDNEYS: The RIGHT side measures 10.2 cm and the LEFT side measures 9.8 cm. Mild right-sided hydronep hrosis appears to be present SPLEEN: Unremarkable. Measures 8.6 cm AORTA: No aneurysm. IVC: Unremarkable as visualized. IMPRESSION: Mild right-sided hydronephrosis with prior cholecystectomy ELECTRONICALLY SIGNED BY: Ramana Dugan MD Jan 01, 2021 12:51:11 AM WOOD TREATING INSPECTOR FINAL REPORT: ABDOMEN ULTRASOUND: HISTORY: Status post cholecystectomy. The patient is having pain. FINDINGS: Visualized aorta and IVC have a normal caliber. The head and proximal body of the pancreas have a no rmal echotexture. Normal echotexture of the liver. Portal vein is patent. Common bile duct diameter is 0.4 cm. No abnormality in the gallbladder fossa. Appropriate cortical echotexture of the kidneys. Bilaterally, no hydronephrosis. Appropriate echotexture of the kidneys. Minimal right-sided hydronephrosis. Left kidney measures 9. 9 x 5.3 x 4.6 cm. The right kidney measures 10.2 x 4.3 x 4.9 cm. The spleen has a normal echotexture, measuring 8.9 cm. IMPRESSION: 1. This report is in agreement with the preliminary report by [facility]. 2. Mild right-sided hydronephrosis. 3. Limited evaluation of the gallbladder fossa. Additional imaging if clinically warranted. POS: PPP
== END 2021-01-01 05:35 | disposition short-term general hospital (02) ==
LOC: ERS 22:51
DX: O21.0 Mild hyperemesis gravidarum (principal); O99.891 Other specified diseases and conditions complicating pregnancy; R50.82 Postprocedural fever; Z3A.15 15 weeks gestation of pregnancy
CPT/HCPCS: 36415; 80053; 81003; 81015; 83605; 85025; 87040; 87086; 93005; 93975; 96365; 96366; 96367; 96375; J2270; J2550; J3480

== ENCOUNTER 2021-09-27 05:11 | Emergency (ER) | payer OTHER, SELFPAY ==
[2021-09-27] MEDS ORDERED: Ondansetron PF 4 MG/2 ML Vial ONE (06:03)
[2021-09-27] MEDS ORDERED: Ketorolac Tromethamine 30 MG/ML VIAL ONE (06:03)
[2021-09-27 06:12] LABS: #Basophils 0.1 thou/uL (0.0-0.2); #Eosinphils 0.1 thou/uL (0.0-0.7); #Lymphocytes 1.7 thou/uL (1.20-3.40); #Monocytes 0.5 thou/uL (0.11-0.59); %Basophils 0.7 % (0.0-1.0); %Eosinophils 1.3 % (0.0-10.0); %Lymphocytes 18.2 % (21.0-51.0); %Monocytes 5.1 % (0.0-10.0); %Neutrophils 74.7 % (42.0-75.0); Hemoglobin 12.9 g/dL (12.0-16.0); Mean Corpuscular HGB CONC 34.9 g/dL (32.0-36.0); Mean Corpuscular Hemoglobin 29.6 pg (27.0-31.0); Mean Corpuscular Volume 84.6 fL (78.0-98.0); Mean Platelet Volume 6.9 fL (7.4-10.4); Platelet Count 425 thou/uL (130-400); RBC Distribution Width 13.5 % (11.5-14.5); Red Blood Cell (RBC) Count 4.36 mill/uL (4.20-5.40); White Blood Cell (WBC) Count 9.3 thou/uL (4.8-10.8)
[2021-09-27 06:18] LABS: BHCG - Serum Negative (NEGATIVE); Pregs Control Background? CLEAR/WHITE (CLR/WHITE); Pregs Control Bar Appear? YES (CONTROL BAR)
[2021-09-27 06:26] LABS: ALT (SGPT) 26 U/L (8-55); AST (SGOT) 24 U/L (5-34); Albumin 4.2 g/dL (3.5-5.0); Alkaline Phosphatase 117 U/L (40-110); Anion Gap 13 mmol/L (10-20); BUN (Urea Nitrogen) 11 mg/dL (7.0-18.7); Bilirubin, Total 0.2 mg/dL (0.2-1.2); Calc. Creatinine Clearance 0 mL/min (70-130); Calcium 9.6 mg/dL (7.8-10.44); Carbon Dioxide 21 mmol/L (22-29); Chloride 107 mmol/L (98-107); Globulin 3.7 g/dL (2.4-3.5); Glucose 99 mg/dL (70-105); Potassium 3.7 mmol/L (3.5-5.1); Protein, Total 7.9 g/dL (6.0-8.3); Sodium 137 mmol/L (136-145)
[2021-09-27 07:08] LABS: Bilirubin Negative (Negative); Blood, Urine Negative (Negative); Clarity Clear (Clear); Glucose, Urine (Dipstick) Normal (Negative); Ketone, Urine Negative (Negative); Leukocyte Negative Leu/uL (Negative); Nitrite Negative (Negative); Protein, Urine (Dipstick) Negative (Neg-Trace); Specific Gravity, Urine 1.013 (1.002-1.036); Urobilinogen Normal mg/dL (Less than 2); pH, Urine 5.5 (5.0-9.0)
[2021-09-27] MEDS ORDERED: Iopamidol 370 76% 100 ML VIAL ONE (12:21)
== END 2021-09-27 07:45 | disposition home or self-care (01) ==
LOC: ERS 05:11
DX: R10.31 Right lower quadrant pain (principal); R19.7 Diarrhea, unspecified; R11.0 Nausea
CPT/HCPCS: 74177; 80053; 81003; 84703; 85025; 96374; 96375; J1885; J2405; Q9967